=== PATIENT | female | born 1975 | race Caucasian/White ===

== ENCOUNTER 2020-07-31 16:30 | Outpatient (CLI) | payer OTHER, SELFPAY ==
--- NOTE | ~2020-07-31 | MM_ITS ---
EXAMINATION: MM screening lance BI w ubaldo HISTORY: Screening TECHNIQUE: Craniocaudal and mediolateral oblique 3-D tomosynthesis images were obtained and synthetic 2-D images were generated. CAD analysis was submitted and interpreted. COMPARISON: No prior mammogram is available for comparison at this institution. BREAST PARENCHYMAL COMPOSITION: The breasts are heterogeneously dense, which may obscure small masses . FINDINGS: There is no evidence of suspicious mass, calcification, or architectural distortion to sugg est malignancy in either breast. There has been no suspicious interval change. IMPRESSION: 1. No mammographic evidence of malignancy. 2. Recommend routine screening mammography in one year. BI-RADS Category 1: Negative Reviewed, dictated and finalized at location A.
== END 2020-07-31 16:31 | disposition home or self-care (01) ==
LOC: ANHIMG 16:36
PROVIDERS: PCP Family Medicine; Visit Provider Nurse Practitioner Obstetrics & Gynecology
DX: Z12.31 Encounter for screening mammogram for malignant neoplasm of breast (principal)
CPT/HCPCS: 77063; 77067

== ENCOUNTER 2021-08-01 07:23 | Outpatient (CLI) | payer OTHER, SELFPAY ==
--- NOTE | ~2021-08-01 | MM_ITS ---
EXAMINATION: MM screening lance BI w ubaldo HISTORY: Screening mammogram TECHNIQUE: Craniocaudal and mediolateral oblique 3-D tomosynthesis images were obtained and synthetic 2-D images were generated. CAD analysis was submitted and interpreted. COMPARISON: 07/31/2020 bilateral digital screening mammogram BREAST PARENCHYMAL COMPOSITION: There are scattered areas of fibroglandular density. FINDINGS: There are indeterminate microcalcifications in the posterior mid to upper outer right breas t. Magnification views are recommended for better definition. Otherwise there is no evidence of suspicious mass, calcification, or architectural distortion to sugg est malignancy in either breast. There has been no other suspicious interval change. IMPRESSION: 1. Indeterminate microcalcifications on the right 2. Diagnostic right mammogram with magnification views is recommended BI-RADS Category 0: Incomplete: Needs additional imaging evaluation. Reviewed, dictated and finalized at location A.
== END 2021-08-01 07:24 | disposition home or self-care (01) ==
LOC: ANHIMG 07:25
PROVIDERS: PCP Family Medicine; Visit Provider Nurse Practitioner Obstetrics & Gynecology
DX: Z12.31 Encounter for screening mammogram for malignant neoplasm of breast (principal); R92.0 Mammographic microcalcification found on diagnostic imaging of breast
CPT/HCPCS: 77063; 77067

== ENCOUNTER 2021-09-03 11:26 | Outpatient (CLI) | payer OTHER, SELFPAY ==
--- NOTE | ~2021-09-03 | MM_ITS ---
EXAMINATION: MM diagnostic mammo unilat RT HISTORY: Indeterminate left breast calcifications TECHNIQUE: Additional images of the right breast were performed. CAD analysis was submitted and inter preted. COMPARISON: 08/01/2021, 07/31/2020 BREAST PARENCHYMAL COMPOSITION: The breasts are heterogeneously dense, which may obscure small masses . FINDINGS: There are grouped calcifications posterior third of the upper outer quadrant of the breast at the 11:00 location 9.8 cm from the nipple. These appear to be round in morphology. IMPRESSION: 1. Probably benign right breast calcifications. 2. Recommend 6 month follow-up right diagnostic mammogram. BI-RADS category 3, probably benign findings. Reviewed, dictated and finalized at location A.
== END 2021-09-03 11:27 | disposition home or self-care (01) ==
LOC: ANHIMG 11:28
PROVIDERS: PCP Family Medicine; Visit Provider Nurse Practitioner Obstetrics & Gynecology
DX: R92.8 Other abnormal and inconclusive findings on diagnostic imaging of breast (principal)
CPT/HCPCS: 77065

== ENCOUNTER 2022-10-28 16:18 | Outpatient (CLI) | payer OTHER, SELFPAY ==
[2022-11-01 21:27] LABS: ANA Cascade Screen Negative (Negative)
== END 2022-10-28 16:19 | disposition home or self-care (01) ==
LOC: ANHLAB 16:19
PROVIDERS: PCP Family Medicine; Visit Provider Physician Assistant
DX: M25.50 Pain in unspecified joint (principal); R21 Rash and other nonspecific skin eruption
CPT/HCPCS: 36415; 86038

== ENCOUNTER 2022-11-16 17:09 | Outpatient (CLI) | payer OTHER, SELFPAY ==
--- NOTE | ~2022-11-16 | MM_ITS ---
EXAMINATION: MM screening lance BI w ubaldo HISTORY: Screening TECHNIQUE: Craniocaudal and mediolateral oblique 3-D tomosynthesis images were obtained and synthetic 2-D images were generated. CAD analysis was submitted and interpreted. COMPARISON: Comparison to multiple prior studies sequentially, with oldest reviewed study dated 01/2020. BREAST PARENCHYMAL COMPOSITION: FINDINGS: There is a new 4 mm mass in the mid outer aspect of the right breast anteriorly. The left b reast is stable without evidence for malignancy. IMPRESSION: 1. New 4 mm right breast mass. 2. Additional mammographic views and possible breast ultrasound are recommended. BI-RADS Category 0: Incomplete: Needs additional imaging evaluation. Reviewed, dictated and finalized at location A. 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 New 4 mm right breast mass. 2. Additional mammographic views and possible breast ultrasound are recommended . BI-RADS Category 0: Incomplete: Needs additional imaging evaluation.
== END 2022-11-16 17:10 | disposition home or self-care (01) ==
LOC: ANHIMG 17:10
PROVIDERS: PCP Family Medicine; Visit Provider Nurse Practitioner Obstetrics & Gynecology
DX: Z12.31 Encounter for screening mammogram for malignant neoplasm of breast (principal); R92.8 Other abnormal and inconclusive findings on diagnostic imaging of breast
CPT/HCPCS: 77063; 77067

== ENCOUNTER 2022-12-06 11:14 | Outpatient (CLI) | payer OTHER, SELFPAY ==
--- NOTE | ~2022-12-06 | MMUS_ITS ---
EXAMINATION: MM diagnostic lance RT w ubaldo, US breast RT complete HISTORY: New 4 mm mass in the anterior mid outer right breast reported on 11/16/2022 screening mammog [place] TECHNIQUE: Additional 3-D tomosynthesis images of the right breast were performed and synthetic 2-D i mages were generated. CAD analysis was submitted and interpreted. High resolution complete right jose st ultrasound examination including all 4 quadrants and subareolar area was performed. COMPARISON: 11/16/2022 bilateral screening mammogram FINDINGS: MAMMOGRAPHIC FINDINGS: There is a 5 mm circumscribed opacity situated anteriorly not far from midline in the outer mid right breast. Mammographic features suggest benign process. No suspicious mass or architectural distortion is noted. ULTRASOUND: 11:00 near nipple: Parallel circumscribed sonolucency measuring 4 x 5.3 mm, without internal vascular ity, with through transmission, consistent with simple cyst. No suspicious mass or shadowing of the right breast is detected IMPRESSION: 1. Benign finding 2. Routine annual mammographic screening is recommended BI-RADS Category 2: Benign finding(s). Reviewed, dictated and finalized at location A. 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 Benign finding 2. Routine annual mammographic screening is recommended BI-RADS Category 2: Benign finding(s).
== END 2022-12-06 11:15 | disposition home or self-care (01) ==
LOC: ANHIMG 11:15
PROVIDERS: PCP Family Medicine; Visit Provider Nurse Practitioner Obstetrics & Gynecology
DX: R92.8 Other abnormal and inconclusive findings on diagnostic imaging of breast (principal)
CPT/HCPCS: 76641; 77061; 77065; G0279

== ENCOUNTER 2023-09-01 12:20 | Outpatient (CLI) | payer OTHER, SELFPAY ==
--- NOTE | 2023-09-01 12:54 | ECG_ITS ---
Measurements Intervals [place] Rate: 75 P: 43 MS: 201 QRS: 63 QRSD: 82 T: 32 QT: 367 QTc: 411 Interpretive Statements SINUS RHYTHM NO PREVIOUS ECG AVAILABLE FOR COMPARISON Electronically Signed On 09-02-2023 14:07:29 CDT by Vilma Joel M.D.
== END 2023-09-01 12:21 | disposition home or self-care (01) ==
LOC: ANHSURGERY 12:23
PROVIDERS: PCP Family Medicine; Visit Provider Obstetrics & Gynecology
DX: N92.0 Excessive and frequent menstruation with regular cycle (principal); I10 Essential (primary) hypertension; Z01.818 Encounter for other preprocedural examination
CPT/HCPCS: 36415; 86850; 86900; 86901; 93005

== ENCOUNTER 2023-09-07 02:49 | Day surgery (SDC) | payer OTHER, SELFPAY ==
[2023-08-25 11:23] VITALS: BMI 29.2
--- NOTE | 2023-08-25 11:30 | PC.NURSE ---
Report to the Outpatient Waiting Room, entrance under the green pavilion located off [facility], at time _0600_ on date _[id number]_. Planned Procedure Time: _0730_. Time changes happen often and if your time is changed the preop area will call you the afternoon before. - You and your visitor will be asked to self-screen and do not enter if you have any COVID symptoms. - A mask is optional within the hospital at this time. Patients may have clear liquids (water, carbonated beverages, clear teas, apple juice) until 3 hours prior to surgery with a maximum of 20 ounces. - No food from midnight until time of surgery Take the following medications with a SIP of water the morning of surgery: None DO NOT STOP ANY OF YOUR OTHER PRESCRIPTION MEDICATIONS PRIOR TO SURGERY ?EXCEPT THE FOLLOWING Medications to discontinue per physician None Date to take last dose Please no make-up, nail south k[place], hairspray, perfume, deodorant, or body powder the day of surgery. No jewelry (including any body piercings) or valuables the day of surgery, leave them at home. Please take a shower or bath the night before, or the morning of, surgery with an antibacterial soap. Wear comfortable, loose fitting clothing. - Jewelry must be removed prior to entering the operating room. Rings and piercings that are not removed may be cut off. - The hospital will not accept responsibility for valuables. - Please leave all valuables, including medications, at home the day of surgery. If you are going home after surgery, a licensed chuck wagon driver must drive you home. - NO public transportation without another adult if you receive anesthesia. - We recommend that an adult stay with you for 24 hours following discharge. - We also recommend that you do not drive, make important decision, drink alcoholic beverages, or take any drugs that were not prescribed by your health care provider for at least 24 hours after your discharge time. Follow any additional instructions given to you from your surgeon. If you or anyone in your household have experienced Covid symptoms in the past week, please notify your surgeon or the nurse liaison at the phone number below for possible testing. Telephone instructions given to __Patient__and asked if any additional questions and then verbalized understanding. Patient advised to call surgeon office or pre surgery nurse liaison [phone] if any additional questions.
[2023-09-07] VITALS (8 sets, daily range): BP systolic 111–154; BP diastolic 59–79; PULSE 73–97; RESP 13–20; TEMP 36.7–37.1; O2SAT 98–100
--- NOTE | ~2023-09-07 | XR_ITS ---
EXAMINATION: XR cystogram 1-2V DATE: 09/07/2023 11:01 INDICATION: Bladder injury. TECHNIQUE: Water-soluble contrast was gravity-infused through the patient's Jensen catheter. Multiple fluoroscopic images were obtained. Fluoroscopy exposure time was 0.4 minutes. The total number of peter ges was 7. COMPARISON: None. FINDINGS: There is a Jensen catheter in expected position. There is bladder is normal. There is no ext raluminal leakage of contrast. No visible foreign body. IMPRESSION: 1. Normal cystogram. Reviewed, dictated and finalized at location A. IMPRESSION: 1. Normal cystogram.
[2023-09-07] MEDS: ACETAMINOPHEN 500 MG TABLET 1000 MG PO (06:39)
[2023-09-07] MEDS: KETOROLAC 15 MG/ML VIAL (*BKC) IV PUSH (06:41)
[2023-09-07] MEDS: SCOPOLAMINE 1.5 MG PATCH TRANSDERM (06:45)
[2023-09-07] MEDS: LACTATED RINGERS 1,000 ML 30 ML IV CONT ×2 (06:46→10:40)
--- NOTE | 2023-09-07 06:55 | P.PNAN_ITS ---
Anes - Initial Pre Proc Eval Procedure: Operation Date: 09/07/23 07:30 Proposed Procedures p Total Laparoscopic Hysterectomy with Bilateral Salpingo-Oophorectomy - Juan Antonio Mane MD Date/Time: 09/07/23 06:55 Surgeon: Juan Antonio Mane MD Pre Op Diagnosis: menorragia Patient Data Age: 47 Gender: F Height: 1.57 m Weight: 69.5 kg Last Vital Signs Temp 36.7 C 09/07/23 06:21 Pulse 97 09/07/23 06:21 Resp 20 09/07/23 06:21 BP 154/78 H 09/07/23 06:21 Pulse Ox 99 09/07/23 06:21 O2 Del Method Room Air 09/07/23 06:21 Allergies Allergy/AdvReac Type Severity Reaction Status Date / Time strawberry Allergy Mild Nausea and Verified 09/07/23 06:49 Vomiting morphine AdvReac Mild Nausea and Verified 09/07/23 06:49 Vomiting Home Medications Medication Instructions Recorded Confirmed Type cetirizine 10 mg tablet (Zyrtec) 10 mg PO DAILY PRN Allergy Symptoms 10/10/19 08/25/23 History irbesartan 75 mg tablet See Rx Instructions .Route 05/25/23 08/25/23 Rx .COMPLEX #90 tabs Patient hx anesthesia problems: none Family hx anesthesia problems: none Results Review: All pre-operative results and documents have been reviewed as part of the pre- operative evaluation. [facility] Past Medical History Medical History Acute cystitis with hematuria Adult general medical exam Bronchitis Wheeze Surgical History Surgical History History of section History of tubal ligation Family History Family History Mother Patient's mother is in good health Breast cancer, Onset Age: 61 Lewy body disease Father Patient's father is in good health Thyroid disorder Sibling Patient's brother is in good health Social History Social History Social History: Smoking status: Never smoker Second hand tobacco smoke exposure: No Alcohol intake: never Substance use: never Substance use type: does not use Living arrangements: with family Occupation/Education: occupation Gender identity (if verbalized by the patient): Female Sexual Orientation (if Verbalized by the Patient): Straight or Heterosexual Spiritual care concerns: No Anes - Eval Final PreProcedure Day of Procedure 09/07/23 06:55 Patient weight: overweight Heart: regular rate and rhythm Lungs: clear to auscultation Airway: Mallampati scale class II Neurological: alert and oriented Last oral intake: >/= 8 hours ASA classification: II Emergent: no Anesthetic plan: proceed Anesthesia type and monitoring: general ETT and standard monitoring Results Review: All pre-operative results and documents have been reviewed as part of the pre- operative evaluation. Informed Consent: The patient's anesthetic plan and its attendant risks and benefits were discussed with the patient/family/POA. Questions were solicited and answers provided to the satisfaction of the patient/family/POA.
--- NOTE | 2023-09-07 07:46 | WPDHPUPDATE1 ---
History and Physical Update Update Date/Time: 09/07/23 07:46 History and Physical has been reviewed, including an updated exam of the patient. There are NO changes in the patient's condition. Risks, benefits, and alternatives have been discussed and questions answered. Patient agrees to proceed with procedure.
[2023-09-07] MEDS: ceFAZolin 2 GM/D5W 50 ML 2 GM/50 ML BAG IVPB (07:51)
[2023-09-07] MEDS: ceFAZolin SODIUM 1 GM VIAL (08:27)
--- NOTE | 2023-09-07 09:27 | SUR.OPER ---
250mL pale yellow urine drained from lewis bag in OR at 09
--- NOTE | 2023-09-07 10:03 | W.PM.PROC2 ---
Procedure Note - Detailed Date of Procedure 09/07/23 Pre-op Diagnosis menorragia Post-op Diagnosis Same Procedure Performed Total laparoscopic hysterectomy and bilateral salpingo-oophorectomy. Surgeon Juan Antonio Mane MD Anesthesia General Findings Enlarged uterus, normal tubes and ovaries, normal pelvic anatomy otherwise. Description of Procedure This patient was taken to the operating room. She was prepped and draped in the dorsal lithotomy position after induction of general anesthesia. The uterine manipulator and Michael cup were placed. This was done with a speculum and tenaculum. The speculum was placed. The cervix was grasped with a tenaculum. The stay sutures were placed at 3 and 9:00 a.m.. The stay sutures of 0 Vicryl were brought through the appropriately sized Michael cup. The tip of the MAGALY manipulator was placed in the intrauterine cavity. The cup was slid into place around the cervix and into the fornices. It was locked into place. The sutures were then wrapped around the handle and tied under tension. A 5 mm skin incision was made in the left upper quadrant the abdomen. A 5 mm trocar was inserted into the intrauterine cavity under direct visualization of the scope. Pneumoperitoneum was achieved. A left lower quadrant 11 mm incision was made with scalpel. An 11 mm trocar was inserted into the anterior abdominal cavity under direct visualization the scope. A 5 mm infraumbilical incision was made with a scalpel and a 5 mm trocar was inserted the intra-abdominal cavity under direct visualization of the scope. Bilateral ureteral lysis was performed. This was done from the pelvic brim down to the uterine artery. This was done with careful dissection using sharp and blunt dissection. The infundibulopelvic ligaments were isolated after identification of the ureters bilaterally. These infundibulopelvic ligaments were cauterized and transected with LigaSure cautery. The para ovarian tissue was cauterized and transected with LigaSure cautery bilaterally. Moving around the ovary into the broad ligament the tissue was cauterized transected with LigaSure cautery. The round ligaments were cauterized transected with LigaSure cautery this was all done in a bilateral fashion. In a stepwise fashion along the lateral aspects of the uterus the round ligament and broad ligaments were cauterized transected down to the level of the uterine arteries. A bladder flap was created in the bladder was moved distally to the end of the cervix and over the Michael cup. The bilateral uterine arteries were cauterized and transected. Colpotomy was then performed. In a circumferential fashion the vagina was transected using unipolar cautery. The incision was made down on the Michael cup. The uterus, cervix, fallopian tubes and ovaries were taken out through the vagina. A pneumo occluder was placed in the vagina. The vaginal cuff was closed with a 0 V lock suture in a running fashion. The pelvis was irrigated with copious amounts antibiotic irrigation. The ureters were again examined and found to be intact and flowing freely under the uterine arteries into the bladder. The bladder was intact. It was examined directly. The vagina was irrigated with Betadine solution after removal of the Pneumo occluder. The patient was taken to recovery room. She was stable condition. Sponge lap and needle counts were correct x2. Estimated Blood Loss -75.0 Urine Output -250.0 Drains Yes Packing No Pathology Yes Complications No immediate complications Condition Stable Disposition Floor
[2023-09-07] MEDS: fentaNYL CITRATE INJ (*CRX) 100 MCG/2 ML VIAL 25 MCG IV PUSH ×3 (10:12→10:29)
--- NOTE | 2023-09-07 10:32 | SUR.PHASEI ---
1032: To X-Ray via bed with RN x 2.
--- NOTE | 2023-09-07 10:55 | SUR.PHASEI ---
1055: Return from Radiology
[2023-09-07] MEDS: DEXTROSE 5%/0.45% SOD CHL 1,000 ML 125 ML IV CONT (12:18)
--- NOTE | 2023-09-07 17:48 | OBPPTRN ---
1108 Patient transferred to post room #289 via bed. Support person present. Oriented to unit, room, information board, admission packet and security measures. Patient verbalizes understanding.
[2023-09-07] MEDS: IBUPROFEN 600 MG TABLET PO (22:02)
[2023-09-08 05:03] VITALS: BP 146/70; PULSE 85; RESP 18; TEMP 37.4; O2SAT 97
--- NOTE | 2023-09-08 08:26 | PM.GYNPNOP ---
PUMP INSTALLER - A/P Postoperative Procedures: Procedures Operation Date: 09/07/23 07:30 Actual Procedure Side Surgeon p Total Laparoscopic Hysterectomy with Bilateral Salpingo-Oophorectomy Juan Antonio Mane MD Postoperative day: 1 Postoperative status: doing well Postoperative plan: see orders Time Spent With Patient Time: Total time spent is greater than 50% in coordination of care (as documented) at patient's floor/unit and/or counseling patient: Time with patient: less than 15 minutes PUMP INSTALLER- PN:Subj Post-Op Subjective Date/time seen: 09/08/23 08:26 Subjective: patient reports feeling better, patient has no complaints and pain is well controlled Exam Const: General: healthy appearing, comfortable and no acute distress Resp: Auscultation: clear to auscultation bilaterally, no rales, no rhonchi and no wheezes Cardio: Rate: regular rate Heart sounds: no click, no murmurs and no rubs GI: Inspection: non-distended Auscultation: normal bowel sounds Extrem: General: normal to inspection, no pedal edema and no calf tenderness PUMP INSTALLER - PN: Obj Data Vital Signs Vital Signs: Vital Signs - 24 hr 09/07/23 09:40 09/07/23 09:55 09/07/23 10:00 Temperature 98.5 F Pulse Rate 73 82 74 Respiratory Rate 14 19 14 Blood Pressure 124/63 127/79 115/70 Pulse Oximetry 100 100 100 Oxygen Delivery Simple Face Mask Simple Face Mask Room Air Oxygen Flow Rate 6 6 09/07/23 10:15 09/07/23 11:01 09/07/23 11:15 Temperature 98.3 F Pulse Rate 75 73 84 Respiratory Rate 13 14 16 Blood Pressure 116/74 111/72 123/59 L Pulse Oximetry 99 98 99 Oxygen Delivery Room Air Room Air Oxygen Flow Rate 09/07/23 20:00 09/07/23 20:00 09/08/23 05:03 Temperature 98.7 F 99.3 F Pulse Rate 85 85 85 Respiratory Rate 16 18 18 Blood Pressure 121/68 146/70 H Pulse Oximetry 99 99 97 Oxygen Delivery Room Air Oxygen Flow Rate 09/08/23 05:03 Temperature Pulse Rate 85 Respiratory Rate 18 Blood Pressure Pulse Oximetry 97 Oxygen Delivery Room Air Oxygen Flow Rate Intake/Output Intake/Output: Intake & Output 09/05/23 09/06/23 09/07/23 09/08/23 23:59 23:59 23:59 23:59 Intake Total 1650 Output Total 1550 Balance 100 Meds/Results Medications: Active Medications Generic Name Dose Route Start Last Admin Trade Name Freq PRN Reason Stop Dose Admin Hydrocodone Bitart/Acetaminophen 1 tab 09/07/23 11:03 Hydrocodone/Acetaminophen (*Crx) 5-325 Mg Tablet PO Q3H PRN Pain Rated 5 or Less Hydrocodone Bitart/Acetaminophen 1 tab 09/07/23 11:03 Hydrocodone/Acetaminophen (*Crx) 10-325 Mg Tablet PO Q3H PRN Pain Rated 6 or Greater Ibuprofen 600 mg 09/07/23 11:03 09/07/23 22:02 Ibuprofen 600 Mg Tablet PO 600 mg Q6H PRN Administration Cramping Ketorolac Tromethamine 30 mg 09/07/23 11:03 Ketorolac 30 Mg/Ml Vial (*Bkc) IV PUSH 09/12/23 11:02 Q6H PRN Pain Rated 4-6 Loratadine 10 mg 09/07/23 11:10 Loratadine 10 Mg Tablet PO DAILY PRN Allergy Symptoms Naloxone HCl 0.1 mg 09/07/23 11:03 Naloxone Hcl 0.4 Mg/Ml Vial IV PUSH Q2M PRN Respiratory rate less than 10 Ondansetron HCl 4 mg 09/07/23 11:03 Ondansetron Inj 4 Mg/2 Ml Vial IV PUSH Q6H PRN Nausea And Vomiting Radiology Results: ITS Impressions Cystogram 09/07/23 11:25 IMPRESSION: 1. Normal cystogram.
--- NOTE | 2023-09-08 08:30 | PC.NURSE ---
PT introductions made and plan of care discussed per post op caustic preparer surgery, pain management, daily care activities and pending discharge to home. pt sole recipient of such instructions and no barriers to learning identified at this time. PT received such instructions per one to one discussion, and demonstrations. PT verbalized understanding of such care.
[2023-09-08 09:10] VITALS: BP 127/63; PULSE 74; RESP 16; TEMP 37.2; O2SAT 97
[2023-09-08] MEDS: ACETAMINOPHEN 500 MG TABLET 1000 MG (09:16)
[2023-09-08] MEDS: IBUPROFEN 600 MG TABLET PO (09:17)
--- NOTE | 2023-09-08 09:30 | PC.NURSE ---
PT received discharge instructions per protocol and verbalized understanding of such instructions.
--- NOTE | 2023-09-08 09:32 | WPDANESPN ---
Anes - Prog Note Post-Op Date/Time: 09/08/23 09:32 Cardiovascular status: normal Respiratory status: normal Airway patency: baseline Mental status: baseline Post-Op hydration status: normal Vital Signs: Last Vital Signs Temp 37.4 C 09/08/23 05:03 Pulse 85 09/08/23 05:03 Resp 18 09/08/23 05:03 BP 146/70 H 09/08/23 05:03 Pulse Ox 97 09/08/23 05:03 O2 Del Method Room Air 09/08/23 05:03 O2 Flow Rate 6 09/07/23 09:55 Pain Score (VAS): 10 I/O: Intake & Output 09/07/23 09/08/23 09/08/23 23:59 07:59 15:59 Intake Total 1600 Output Total 1450 Balance 150 Post-procedural complaints: none Patient Feedback: Patient satisfied with anesthetic care.
--- NOTE | 2023-09-08 09:41 | PC.NURSE ---
PT discharged to home via wheelchair unaccompanied and taken to waiting car. Follow up appts confirmed
== END 2023-09-08 09:41 | disposition home or self-care (01) ==
LOC: ANHSURGERY 10:28 → ANHOB2 11:28
PROVIDERS: PCP Family Medicine; Visit Provider Obstetrics & Gynecology
PROC: 0UT9FZZ Resection of Uterus, Via Natural or Artificial Opening With Percutaneous Endoscopic Assistance (ICD-10-PCS; CPT 58552; principal; 2023-09-07 07:30)
DX: N92.0 Excessive and frequent menstruation with regular cycle (principal)
CPT/HCPCS: 58552; 51600; 74430; 88307; 99199; A9270; J0330; J0690; J1100; J1885; J2250; J2405; J2704; J3010; J7030; J7120; Q9967

== ENCOUNTER 2023-11-15 07:54 | Outpatient (CLI) | payer OTHER, SELFPAY ==
[2023-11-15 08:21] LABS: Appearance Urine Clear (Clear); Bacteria Urine Rare /hpf; Bilirubin Urine Negative (Negative); Blood Urine 2+ (Negative); Color Urine Yellow (Yellow); Glucose Urine UA Negative (Negative); Ketones Urine Negative (Negative); Leukocyte Esterase Ur 2+ LEU/UL (Negative); Nitrate Urine Negative (Negative); Non Pathogenic Casts 0-2; Protein Urine Negative (Negative); Specific Grav Ur 1.008 (1.001-1.035); Squamous Epithelial Cell Urine None seen /hpf (Few); Urobilinogen Urine 0.2 mg/dL (<2.0); WBC Urine 51-100 /hpf; pH Urine 6.5 (5.0-9.0)
[2023-11-15 08:49] LABS: Add Urine Microscopic? YES
== END 2023-11-15 07:55 | disposition home or self-care (01) ==
LOC: ANHLAB 07:55
PROVIDERS: PCP Family Medicine; Visit Provider Physician Assistant
DX: R30.0 Dysuria (principal)
CPT/HCPCS: 81001; 87086; 87088

== ENCOUNTER 2023-12-02 13:07 | Outpatient (CLI) | payer OTHER, SELFPAY ==
[2023-12-02 13:32] LABS: Appearance Urine Clear (Clear); Bacteria Urine 1+ /hpf; Bilirubin Urine Negative (Negative); Blood Urine Negative (Negative); Color Urine Yellow (Yellow); Glucose Urine UA Negative (Negative); Ketones Urine Negative (Negative); Leukocyte Esterase Ur Trace LEU/UL (Negative); Nitrate Urine Negative (Negative); Non Pathogenic Casts 0-2; Protein Urine Negative (Negative); RBC Urine 0-2 /hpf (0-2); Specific Grav Ur 1.008 (1.001-1.035); Squamous Epithelial Cell Urine None seen /hpf (Few); Urobilinogen Urine 0.2 mg/dL (<2.0)
[2023-12-02 13:34] LABS: Add Urine Microscopic? YES
== END 2023-12-02 13:08 | disposition home or self-care (01) ==
LOC: ANHLAB 13:09
PROVIDERS: PCP Family Medicine; Visit Provider Physician Assistant
DX: R30.0 Dysuria (principal)
CPT/HCPCS: 81001; 87086

== ENCOUNTER 2023-12-22 11:57 | Outpatient (CLI) | payer OTHER, SELFPAY ==
[2023-12-28 05:48] LABS: Prolactin 5.8 ng/mL (***)
== END 2023-12-22 11:58 | disposition home or self-care (01) ==
LOC: ANHLAB 11:58
PROVIDERS: PCP Family Medicine; Visit Provider Physician Assistant
DX: R79.89 Other specified abnormal findings of blood chemistry (principal)
CPT/HCPCS: 36415; 84146